=== PATIENT | male | born 1960 | race Caucasian/White ===

== ENCOUNTER 2019-12-03 04:07 | Emergency (ER) | payer OTHER ==
[~2019-12-03] VITALS: Ht 175.3 cm; Wt 72.6 kg
[2019-12-03 04:10] VITALS: BP 138/74
--- NOTE | 2019-12-03 04:10 | NUR ---
ED Nurse Note: Patient brought into ED by RA Tulio from [facility] c/o panic attack onset for 2 hours now prior to arrival. patient does not complain of pain at this time, patient does present with belligerent ideas. patient questioned nurse "do you know how to perform cunnilingus, if so can you please show me" then presents to yelling asking where his sandwich is. patient does not state homicidal or suicidal ideations. IV placed on left forearm 20 gauge, will continue to monitor
[2019-12-03] MEDS ORDERED: Ketorolac 30mg Inj IV ONE (04:30)
[2019-12-03] MEDS ORDERED: LORazepam Inj 2mg/ml 1ml IV ONE (05:15)
[2019-12-03 05:27] LABS: BASOPHILS % (AUTO) 0.8 % (0.0-2.0); EOSINOPHILS % (AUTO) 1.1 % (0.0-3.0); HEMATOCRIT 38.6 % (42.0-52.0); HEMOGLOBIN 12.8 G/DL (14.2-18.0); LYMPHOCYTES % (AUTO) 25.1 % (20.0-45.0); MEAN CORPUSCULAR VOLUME 92 FL (80-99); MONOCYTES % (AUTO) 4.6 % (1.0-10.0); NEUTROPHILS % (AUTO) 68.4 % (45.0-75.0); PLATELET COUNT 200 K/UL (150-450); RED BLOOD COUNT 4.18 M/UL (4.70-6.10); RED CELL DISTRIBUTION WIDTH 12.5 % (11.6-14.8); WHITE BLOOD COUNT 7.5 K/UL (4.8-10.8)
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
--- NOTE | 2019-12-03 05:45 | NUR ---
ED Nurse Note: when asked to provide urine, patient urinated in urinal however spilled sample on himself. ERMD aware and notified
[2019-12-03 05:49] LABS: ANION GAP 11 mmol/L (5-15); BLOOD UREA NITROGEN 20 mg/dL (7-18); CALCIUM 9.3 MG/DL (8.5-10.1); CARBON DIOXIDE 25 MMOL/L (21-32); CHLORIDE 110 MMOL/L (98-107); CREATININE 1.3 MG/DL (0.55-1.30); POTASSIUM 3.7 MMOL/L (3.5-5.1); SODIUM 146 MMOL/L (136-145)
[2019-12-03 06:01] LABS: ALANINE AMINOTRANSFERASE 50 U/L (12-78); ALBUMIN 3.7 G/DL (3.4-5.0); ALBUMIN/GLOBULIN RATIO 1.2 (1.0-2.7); ALKALINE PHOSPHATASE 48 U/L (46-116); ASPARTATE AMINO TRANSFERASE 31 U/L (15-37); BILIRUBIN,TOTAL 0.6 MG/DL (0.2-1.0); CREATINE KINASE 380 U/L (26-308)
--- NOTE | 2019-12-03 06:22 | NUR ---
HAND-OFF: Report given to FRANCIS Choudhury.
--- NOTE | 2019-12-03 06:30 | NUR ---
ED Nurse Note: pt care endorsed by FRANCIS Bradshaw. pt is in bed, appears to be sleeping. unable to provide urine sample at this time. all safety precautions are in place. will continue to monitor
[2019-12-03 06:41] VITALS: BP 134/75
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
--- NOTE | 2019-12-03 07:16 | NUR ---
HAND-OFF: Report given to FRANCIS Archuleta.
[2019-12-03 07:22] VITALS: BP 146/90
--- NOTE | 2019-12-03 07:22 | NUR ---
ED Nurse Note: Patient found in dressing himself, walking in the room with steady gait. Patient asking for sandwiches and juice. No N/V or tremor noted. Patient awake, alert, oriented x4. Regular, unlabored breathing noted. Patient using cell phone and sending text messages. IV to left AC noted without redness, swellling. Provided hospital gown, socks and warm blankets and breakfast. Bed in lowest position. Addendum: 12/03/19 at 0746 by RUTH instructed patient to keep hospital socks on to prevent fall. Patient acknowledged. instructed patient to notify RN if he feels dizzy and do not get out of bed without help.
--- NOTE | 2019-12-03 07:30 | NUR ---
ED Nurse Note: Denies SI/HI or hearing voices or seeing things that are not there.
--- NOTE | 2019-12-03 08:07 | NUR ---
ED Nurse Note: Patient tolerating oral intake (sandwiches and juice) without N/V.
--- NOTE | 2019-12-03 08:30 | NUR ---
ED Nurse Note: Patient drinking water without N/V. Patient walking to restroom with steady gait. Instrucated patient to take Tylenol or Motrin as needed for foot pain and f/u with PCP as ordered. Patient verbalized understanding of it.
[2019-12-03] MEDS ORDERED: XANAX0.25 MG ORAL (08:43)
[2019-12-03 09:10] VITALS: BP 142/92
--- NOTE | 2019-12-03 09:10 | NUR ---
ER DISCHARGE NOTE: Patient is cleared to be discharged per ERMD. Patient is awake, alert, oriented x 4. Given D/C instruction. Patient verbalized understanding of it. Provided Covid test site information. ID band removed. Patient will follow up with his outpatient psychiatrist and PCP. Patient ambulated out with steady gait with all his belongings.
== END 2019-12-03 09:10 | disposition home or self-care (01) ==
LOC: EDBD 04:07 → EMR 04:23
DX: F19.10 Other psychoactive substance abuse, uncomplicated (principal); F31.9 Bipolar disorder, unspecified; M72.2 Plantar fascial fibromatosis; F41.9 Anxiety disorder, unspecified
CPT/HCPCS: 36415; 80053; 80164; 80307; 82550; 84443; 85025; 93005; 96361; 96374; 96375; G0480; G0481; J1885; J7030; Z7502; 99284